=== PATIENT | female | born 1970 | race Two or more races ===

== ENCOUNTER 2017-02-26 05:44 | Emergency (ER) | payer OTHER ==
[~2017-02-26] VITALS: Ht 160 cm; Wt 95.0 kg
[~2017-02-26 05:44] MED LIST: ASPI-621 PO
[2017-02-26] MEDS ORDERED: SODIUM CHLORIDE 0.9% 1,000 ML IV ONE (06:09)
[2017-02-26] MEDS ORDERED: ONDANSETRON 2MG/ML, 2ML ONE (06:09)
[2017-02-26] MEDS ORDERED: MORPHINE SULFATE 4 MG/ML, 1ML ONE ×2 (06:09→06:10)
[2017-02-26] MEDS: MORPHINE SULFATE 4 MG/ML, 1ML IVPush PRN ×2 (06:13→06:34)
[2017-02-26] MEDS ORDERED: ONDANSETRON 2MG/ML, 2ML IVPush ONE (06:30)
[2017-02-26] MEDS ORDERED: SODIUM CHLORIDE 0.9% 1,000ML IVBOLUS ONE (06:30)
[2017-02-26] MEDS ORDERED: HYDROmorphone 1 MG/ML, 1ML ONE (06:41)
[2017-02-26 06:44] VITALS: BP 104/54
[2017-02-26] MEDS ORDERED: HYDROmorphone 1 MG/ML, 1ML IVPush PRN (07:00)
[2017-02-26] MEDS ORDERED: PROPOFOL 10 MG/ML, 20ML ONE (07:28)
== END 2017-02-26 11:19 | disposition home or self-care (01) ==
LOC: ED 10:16
DX: S82.852A Displaced trimalleolar fracture of left lower leg, initial encounter for closed fracture (principal); W19.XXXA Unspecified fall, initial encounter; Y93.89 Activity, other specified; Y92.89 Other specified places as the place of occurrence of the external cause; Y99.8 Other external cause status
CPT/HCPCS: 27840; 73600; 73610; 96361; 96374; 96375; 99284; J1170; J2405; J7030